=== PATIENT | male | born 1955 | race Caucasian/White ===

== ENCOUNTER 2017-08-22 11:32 | Day surgery (SDC) | payer OTHER ==
[2017-08-22] MEDS ORDERED: D5 LR 1000 ML 1,000 ML IV ONE (11:43)
[2017-08-22] MEDS ORDERED: DIPRIVAN VIAL 20 ML ONE (12:25)
[2017-08-22 13:16] VITALS: BP 116/67
== END 2017-08-22 13:10 ==
LOC: SURG1 11:32
PROVIDERS: ATTEND Internal Medicine Gastroenterology
PROC: 0DJ08ZZ Inspection of Upper Intestinal Tract, Via Natural or Artificial Opening Endoscopic (ICD-10-PCS; principal; 2017-08-22 15:45)
PROC: 0DB38ZX Excision of Lower Esophagus, Via Natural or Artificial Opening Endoscopic, Diagnostic (ICD-10-PCS; principal; 2017-08-22 15:45)
PROC: 0D757ZZ Dilation of Esophagus, Via Natural or Artificial Opening (ICD-10-PCS; principal; 2017-08-22 15:45)
DX: R13.19 Other dysphagia (principal); R10.13 Epigastric pain; K21.9 Gastro-esophageal reflux disease without esophagitis; K22.2 Esophageal obstruction; K25.9 Gastric ulcer, unspecified as acute or chronic, without hemorrhage or perforation; K29.60 Other gastritis without bleeding
CPT/HCPCS: A4217; J3490; J7120